=== PATIENT | male | born 1970 ===

== ENCOUNTER 2017-09-09 07:36 | Day surgery (SDC) | payer OTHER ==
[~2017-09-09] VITALS: Ht 175.3 cm; Wt 102.4 kg
[2017-09-09] MEDS ORDERED: Omeprazole20 M1 (08:05)
== END 2017-09-09 10:44 | disposition home or self-care (01) ==
LOC: ORSCSDS 07:36
PROVIDERS: Internal Medicine Gastroenterology
PROC: 0D758ZZ Dilation of Esophagus, Via Natural or Artificial Opening Endoscopic (ICD-10-PCS; principal; 2017-09-09 09:30)
DX: R13.10 Dysphagia, unspecified (principal); K20.9 Esophagitis, unspecified; K29.70 Gastritis, unspecified, without bleeding; K21.9 Gastro-esophageal reflux disease without esophagitis; F17.210 Nicotine dependence, cigarettes, uncomplicated; E66.9 Obesity, unspecified; Z68.33 Body mass index [BMI] 33.0-33.9, adult; Z79.899 Other long term (current) drug therapy
CPT/HCPCS: 88305; 88342; C1726; J2250; J7120